=== PATIENT | female | born 1995 | race African-American/Black ===

== ENCOUNTER 2024-12-26 06:18 | Emergency (ER) | payer BC, SELFPAY ==
[2024-12-26] VITALS (12 sets, daily range): BP systolic 114–151; BP diastolic 61–91; PULSE 66–80; RESP 12–22; TEMP 36.7; O2SAT 98–100; BMI 29.3
--- NOTE | 2024-12-26 06:35 | EKG_ITS ---
[address] [address] Test Date: 2024-12-26 Pat Name: Susan Olivera Department: [facility] Room: Gender: Female Ammonia [employer] Preparer: JEFF : 1995 Requested By: Order Number: [id number] Reading MD: Gold Herndon MD Measurements Intervals [place] Rate: 65 P: 69 AL: 158 QRS: 55 QRSD: 86 T: 45 QT: 406 QTc: 422 Interpretive Statements Normal sinus rhythm Electronically Signed On 12-26-2024 8:51:32 PDT by Gold Herndon MD
--- NOTE | 2024-12-26 06:40 | DI.RAD.S_ITS ---
PROCEDURE: XR CHEST 2V INDICATIONS: wheezing TECHNIQUE: 2 views of the chest were acquired. COMPARISON: None. FINDINGS: Cardiopericardial silhouette and pulmonary vasculature within normal limits. No pneumothorax, no pleural effusion, no lobar consolidation. IMPRESSION: No radiographic evidence of acute abnormality. If symptoms persist or worsen, or there is high clinical suspicion of thoracic abnormality, CT chest could be performed. Preliminary report was provided by [facility] Dara Nath MD 12/26/2024 at 7:17 a.m. Dictated by: Long Cleaning M.D. on 12/26/2024 at 8:01 Approved by: Long Cleaning M.D. on 12/26/2024 at 8:03
[2024-12-26 07:21] LABS: Influenza A - CEPHEID Flu A NEGATIVE (NEGATIVE); Influenza B - CEPHEID Flu B NEGATIVE (NEGATIVE)
[2024-12-26 07:22] LABS: COVID-19 CEPHEID 4-PLEX PCR Negative (Negative)
--- NOTE | 2024-12-26 07:24 | ED.CHESTPAIN ---
HPI - Chest Pain General Chief Complaint: Chest Pain Stated Complaint: Chest and back pain (yesterday); Time Seen by Provider: 12/26/24 06:40 Source: patient Mode of arrival: Family Vehicle Limitations: no limitations History of Present Illness HPI narrative: 29-year-old female history of asthma presents with chest tightness, shortness breath, dyspnea on exertion, and right-sided chest pain, since yesterday. She denies fever, chills, bodyaches, sore throat, nausea, vomiting, diarrhea, or back pain. Patient tried a rescue inhaler with no significant relief of her symptoms. Of note patient just came from [place] a month ago and [place] outside in the [employer] thinks the change in air temperature and moisture may have triggered all this. She denies any leg pain, leg swelling, or any history of PE or DVT and is a nonsmoker. Other than what is stated 14 point review of system is negative. Related Data Previous Rx's ?Medication ?Instructions ?Recorded albuterol sulfate 90 mcg/actuation 2 puff inhalation Q4-6H PRN 12/26/24 aerosol inhaler shortness of breath or wheezing #8.5 grams prednisone 20 mg tablet 20 mg PO BID #10 tabs 12/26/24 Allergies Allergy/AdvReac Type Severity Reaction Status Date / Time Penicillins Allergy Mild Hives Verified 12/26/24 06:29 Review of Systems Review of Systems ROS Unobtainable: All systems reviewed & are unremarkable except as noted in HPI and below Patient History Smoking Status: Never smoker Exam Narrative Exam Narrative: GENERAL: [29] year old patient appears stated age. Well-developed patient, in mild distress. HEAD: Atraumatic. Normocephalic. EYES: Pupils equal round and reactive. Extraocular motions intact. No scleral icterus. No injection or drainage. ENT: Nose without bleeding, purulent drainage. Throat without erythema, tonsillar hypertrophy or exudate. Airway patent. NECK: Trachea midline. Non tender CARDIOVASCULAR: Regular rate and rhythm without murmurs, gallops, or rubs. RESPIRATORY: Clear to auscultation. Breath sounds equal bilaterally. No wheezes, rales, or rhonchi. GASTROINTESTINAL: Abdomen soft, non-tender, nondistended. EXTREMITIES: No edema or joint tenderness. BACK: Nontender without deformity or crepitance. No flank tenderness. NEURO: AOx3. SKIN: No rash or erythema of visible areas Initial Vital Signs Initial Vital Signs: Vital Signs Pulse Oximetry 99 12/26/24 06:24 Course Orders Ordered: ED Orders 12/26/24 06:22 EKG-12 Lead Stat 12/26/24 06:40 Chest [XR chest 2V] Stat Covid-19 + FLU A/B + RSV - PCR Stat 12/26/24 07:23 CBC Auto Diff [Complete Blood Count AUTO DIFF] Stat D Dimer Stat 12/26/24 07:24 CMP [Comprehensive Metabolic Panel] Stat Vital Signs Vital signs: Vital Signs - 8 hr 12/26/24 06:24 12/26/24 06:25 12/26/24 06:25 Temperature Pulse Rate 79 Respiratory Rate Blood Pressure 129/61 Pulse Oximetry 99 100 Oxygen Delivery Method 12/26/24 06:29 12/26/24 06:30 12/26/24 06:30 Temperature 98.0 F Pulse Rate 75 74 Respiratory Rate 12 13 Blood Pressure 129/61 114/69 Pulse Oximetry 100 100 Oxygen Delivery Method Room Air Room Air MDM - Chest Pain Lab Data Labs: Lab Results 12/26/24 Range/Units 06:40 SARS-CoV-2 (PCR) Negative (Negative) Influenza A (RT-PCR) Flu a negative (NEGATIVE) Influenza B (RT-PCR) Flu b negative (NEGATIVE) RSV (PCR) Negative (Negative) Imaging Data Chest x-ray: Radiologist's Impression: [place] [address] XRay Report Signed Patient: Susan Olivera MR#: [id number] : 1995 Acct:[id number] Age/Sex: 29 / F Date of Service: 12/26/24 Loc: ED Accession Number: [id number] Procedure: XR chest 2V Ordering Provider: Nate Coronel MD PROCEDURE: XR CHEST 2V INDICATIONS: wheezing TECHNIQUE: 2 views of the chest were acquired. COMPARISON: None. FINDINGS: Cardiopericardial silhouette and pulmonary vasculature within normal limits. No pneumothorax, no pleural effusion, no lobar consolidation. IMPRESSION: No radiographic evidence of acute abnormality. If symptoms persist or worsen, or there is high clinical suspicion of thoracic abnormality, CT chest could be performed. Preliminary report was provided by [facility] Dara Nath MD 12/26/2024 at 7:17 a.m. Dictated by: Long Cleaning M.D. on 12/26/2024 at 8:01 Approved by: Long Cleaning M.D. on 12/26/2024 at 8:03 [facility] Narrative Medical decision making narrative: All lab work vital signs nurse triage note medication list previous ER visits in all imaging studies reviewed. WBC 3.9 hemoglobin 11.9 platelet 296 sodium 138 potassium 3.7 chloride 104 CO2 24 BUN 12 creatinine 0.72 LFTs normal on a normal COVID flu RSV negative. Chest x-ray showed no acute process. Differential diagnosis pleurisy, pneumonia, costochondritis, COVID, flu, RSV, pneumonia, asthma, pneumothorax. DC home on prednisone and albuterol. Discharge Plan Departure Patient Disposition: Home Clinical Impression: Asthma Qualifiers: Asthma severity: moderate Asthma persistence: persistent Asthma complication type: with acute exacerbation Qualified Code(s): J45.41 - Moderate persistent asthma with (acute) exacerbation Instructions: DI for Asthma -- Adult Activity Restrictions/Additional Instructions: Return with new or worsening symptoms. Take your medicines as directed. Follow up PCP in 1-2 weeks if no improvement in symptoms. Prescriptions: New albuterol sulfate 90 mcg/actuation HFA aerosol inhaler 2 puff inhalation Q4-6H PRN (Reason: shortness of breath or wheezing) Qty: 8.5 0RF prednisone 20 mg tablet 20 mg PO BID Qty: 10 0RF Stand Alone Forms: Patient Portal/API
[2024-12-26 07:40] LABS: Add Manual Diff / Slide Review NO; Hematocrit 36.4 % (36-46); Hemoglobin 11.9 g/dL (12.0-16.0); Lymphocytes Absolute Auto 2000 /uL (1100-4500); Mean Corpuscular HGB Conc 32.8 % (30-36); Mean Corpuscular Hemoglobin 26.0 PG (26-34); Mean Corpuscular Volume 79.2 fL (80-100); Platelet Count 296 X10^3/uL (150-400)
[2024-12-26] MEDS: methylPREDNISolone succ 125 MG/2 ML VIAL IV (07:40)
[2024-12-26] MEDS: KETOROLAC 30 MG/ML VIAL 15 MG IV (07:40)
[2024-12-26] MEDS: ALBUTEROL/IPRATROPIUM 3 ML AMPUL INH (07:41)
[2024-12-26 07:52] LABS: Alanine Aminotransferase 18 IU/L (<35); Albumin 4.4 g/dL (3.5-5.0); Albumin Globulin Ratio 1.2 (1.0-2.8); Alkaline Phosphatase 94 U/L (38-126); Blood Urea Nitrogen 12 mg/dL (7-17); Calcium 8.7 mg/dL (8.4-10.2); Carbon Dioxide 24 mmol/L (22-32); Chloride 104 mmol/L (98-107); Estimated Glomerular Filt Rate > 60 mL/min (>60); Globulin 3.7 g/dL (1.7-4.1); Glucose 89 mg/dL (70-99); HEMOLYSIS < 15 (0-50); Potassium 3.7 mmol/L (3.4-5.1); Sodium 138 mmol/L (137-145); Total Protein 8.1 g/dL (6.3-8.2)
[2024-12-26 08:04] LABS: Troponin I < 0.012 ng/mL (0.01-0.034)
== END 2024-12-26 09:03 | disposition home or self-care (01) ==
PROVIDERS: Family Medicine; Emergency Provider Family Medicine
DX: J45.41 Moderate persistent asthma with (acute) exacerbation (principal)
CPT/HCPCS: 36415; 71046; 80053; 84484; 85025; 85379; 87637; 93005; 93010; 96374; 96375; 99284; J1885; J2919